=== PATIENT | male | born 1945 | race Caucasian/White ===

== ENCOUNTER 2017-06-15 15:23 | Emergency (ER) | payer MEDICARE ==
[~2017-06-15] VITALS: Ht 170.2 cm; Wt 79.4 kg
--- NOTE | 2017-06-15 16:04 | RAD ---
Chest radiograph 2 view June 15, 2017 Clinical indication: Cough. Hemoptysis. Comparison: None. Findings: Cardiac and mediastinal silhouettes are within normal limits. No pleural effusion, pneumothorax or focal consolidation. Impression: No acute cardiopulmonary abnormality.
[2017-06-15 17:05] LABS: BASO # 0.1 x10^3/uL (0.0-0.2); BASO % 1 % (0-3); EOS % 5 % (0-3); HEMATOCRIT 46.5 % (39.0-53.0); LYMPH # 2.4 x10^3/uL (1.0-4.8); LYMPH % 30 % (24-48); MEAN CORPUSCULAR HEMOGLOBIN 33 pg (25-35); MEAN CORPUSCULAR HGB CONC 35 g/dL (31-37); MEAN CORPUSCULAR VOLUME 95 fL (79-100); MONO % 10 % (0-9); NEUT % 55 % (31-73); PLATELET COUNT 171 x10^3/uL (140-400); RED BLOOD COUNT 4.91 x10^6/uL (4.30-5.70); RED CELL DISTRIBUTION WIDTH 13.3 % (11.5-14.5); WHITE BLOOD COUNT 8.1 x10^3/uL (4.0-11.0)
--- NOTE | 2017-06-15 17:05 | ED.ADGEN ---
Past Medical History Past Medical History: Hypertension, Kidney Stone Past Surgical History: Other Additional Past Surgical Histo: Lithrotripsy Alcohol Use: None Drug Use: None Adult General Chief Complaint Chief Complaint: COUGH HPI HPI Patient is a 71 year old male current smoker with a [id number] tobacco history presents intermittent hemoptysis for the past one year with daily hemoptysis for the past 6 weeks. Patient takes daily aspirin but is not on a two -week radiation therapy. He denies fever, chills, nausea, vomiting, sweats, recent antibiotics or upper respiratory tract infection. Patient has history of hypertension and COPD. He receives his care at the [facility]. He said previous outpatient workup for hemoptysis at the [facility] but is unaware of the results. 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 All other review symptoms are negative. Allergies Allergies Allergies Coded Allergies Type Severity Reaction Last Updated Verified codeine Allergy Intermediate 06/15/17 Yes Physical Exam Physical Exam Constitutional: Well developed, well nourished, no acute distress, non-toxic appearance. [] HENT: Normocephalic, atraumatic, bilateral external ears normal, oropharynx moist, no oral exudates, nose normal. [] Eyes: PERRLA, EOMI, conjunctiva normal, no discharge. [] Neck: Normal range of motion, no tenderness, supple, no stridor. [] Cardiovascular:Heart rate regular rhythm, no murmur [] Lungs & Thorax: Patient's nonlabored mildly diminished breath sounds bilaterally. Abdomen: Bowel sounds normal, soft, no tenderness, no masses, no pulsatile masses. [] Skin: Warm, dry, no erythema, no rash. [] Back: No tenderness, no CVA tenderness. [] Extremities: No tenderness, no cyanosis, no clubbing, ROM intact, no edema. [] Neurologic: Alert and oriented X 3, normal motor function, normal sensory function, no focal deficits noted. [] Psychologic: Affect normal, judgement normal, mood normal. [] Current Patient Data Vital Signs Vital Signs Date Time Temp Pulse Resp B/P (MAP) Pulse Ox O2 Delivery O2 Flow Rate FiO2 06/15/17 16:30 57 20 170/79 (109) 94 Room Air 06/15/17 15:30 98.1 98.1 Lab Values Laboratory Tests Test 06/15/17 16:55 White Blood Count 8.1 x10^3/uL (4.0-11.0) Red Blood Count 4.91 x10^6/uL (4.30-5.70) Hemoglobin 16.0 g/dL (13.0-17.5) Hematocrit 46.5 % (39.0-53.0) Mean Corpuscular Volume 95 fL (79-100) Mean Corpuscular Hemoglobin 33 pg (25-35) Mean Corpuscular Hemoglobin Concent 35 g/dL (31-37) Red Cell Distribution Width 13.3 % (11.5-14.5) Platelet Count 171 x10^3/uL (140-400) Neutrophils (%) (Auto) 55 % (31-73) Lymphocytes (%) (Auto) 30 % (24-48) Monocytes (%) (Auto) 10 % (0-9) H Eosinophils (%) (Auto) 5 % (0-3) H Basophils (%) (Auto) 1 % (0-3) Neutrophils # (Auto) 4.4 x10^3uL (1.8-7.7) Lymphocytes # (Auto) 2.4 x10^3/uL (1.0-4.8) Monocytes # (Auto) 0.8 x10^3/uL (0.0-1.1) Eosinophils # (Auto) 0.4 x10^3/uL (0.0-0.7) Basophils # (Auto) 0.1 x10^3/uL (0.0-0.2) Prothrombin Time 12.1 SEC (11.7-14.0) Prothrombin Time INR 1.0 (0.8-1.1) PTT 39 SEC (24-38) H Sodium Level 141 mmol/L (136-145) Potassium Level 3.8 mmol/L (3.5-5.1) Chloride Level 104 mmol/L (98-107) Carbon Dioxide Level 33 mmol/L (21-32) H Anion Gap 4 (6-14) L Blood Urea Nitrogen 14 mg/dL (8-26) Creatinine 1.1 mg/dL (0.7-1.3) Estimated GFR (Cockcroft-Gault) 66.0 BUN/Creatinine Ratio 13 (6-20) Glucose Level 94 mg/dL (70-99) Calcium Level 10.2 mg/dL (8.5-10.1) H Total Bilirubin 0.2 mg/dL (0.2-1.0) Aspartate Amino Transferase (AST) 15 U/L (15-37) Alanine Aminotransferase (ALT) 19 U/L (16-63) Alkaline Phosphatase 119 U/L (46-116) H Total Protein 7.4 g/dL (6.4-8.2) Albumin 3.7 g/dL (3.4-5.0) Albumin/Globulin Ratio 1.0 (1.0-1.7) Laboratory Tests 06/15/17 16:55 Laboratory Tests 06/15/17 16:55 EKG EKG [] Radiology/Procedures Radiology/Procedures [] Course & Med Decision Making Course & Med Decision Making Pertinent Labs and Imaging studies reviewed. (See chart for details) [] Dragon Disclaimer Dragon Disclaimer This electronic medical record was generated, in whole or in part, using a voice recognition dictation system. SONYA WORKMAN DO Jun 15, 2017 17:05
[2017-06-15 17:15] LABS: PROTHROMBIN TIME PATIENT 12.1 SEC (11.7-14.0)
[2017-06-15 17:18] LABS: CALCIUM 10.2 mg/dL (8.5-10.1); CREATININE 1.1 mg/dL (0.7-1.3); POTASSIUM 3.8 mmol/L (3.5-5.1)
[2017-06-15 17:24] LABS: ALBUMIN 3.7 g/dL (3.4-5.0); TOTAL BILIRUBIN 0.2 mg/dL (0.2-1.0); TOTAL PROTEIN 7.4 g/dL (6.4-8.2)
[2017-06-15] MEDS ORDERED: CONTRAST GIVEN MC PRN (18:30)
[2017-06-15] MEDS ORDERED: IOHEXOL 300 MG/ML 75 ML VIAL IV ONE (18:30)
--- NOTE | 2017-06-15 19:07 | RAD ---
CT CHEST WITH CONTRAST, PULMONARY ANGIOGRAM History: hemoptysis x once daily for 1 year, worse in last 6 wks. soa and cough. Comparison: None. Technique: Helical CT of the chest was performed after the administration of 75 cc of Omni 300 intravenous contrast according to PE protocol. Axial and coronal reconstructions were obtained. 3-D MIP images were constructed to better evaluate the pulmonary arteries. PQRS compliance statement: One or more of the following individualized dose reduction techniques were utilized for this examination: 1. Automated exposure control 2. Adjustment of the mA and/or kV according to patient size 3. Use of iterative reconstruction technique Findings: Pulmonary arteries are adequately opacified. There is no evidence of pulmonary embolism. There is significant atherosclerotic calcification and mural thrombus involving the thoracic aorta, which remains normal in caliber. The aorta is not opacified and therefore not well evaluated. Heart is normal in size without pericardial effusion. A couple left lower paratracheal lymph nodes are present largest measuring 1.6 cm. Small bilateral hilar lymph nodes are seen. Biapical scarring is present. More focal pleural-based, irregular opacity measuring approximately 1.8 cm is present within the medial right upper lobe. An additional irregular pleural-based opacity is present within the superior left lower lobe measuring up to 2.1 cm. A 2 to 3 mm subpleural nodule is present within the lateral right lower lobe. Additional subcentimeter nodularity is present within the subpleural and lateral left lower lobe, about the irregular pleural-based opacity. No pleural effusion or pneumothorax is present. Diffuse emphysematous changes are present bilaterally. Central airways remain patent. Overlying soft tissues and visualized osseous structures demonstrate no acute or suspicious finding. Visualized upper abdomen demonstrates no acute process. IMPRESSION: 1. No CT evidence of pulmonary embolus. 2. Bilateral pleural-based, irregular opacities present within the medial right lung apex and superior left lower lobe. Some adjacent subcentimeter nodularity is present in the lateral left lower lobe. Given the background of emphysematous changes, a malignant etiology is a consideration, with infectious or inflammatory etiologies also possible. Recommend correlation with outpatient PET/CT or at least short-term CT follow-up in 3 months. Electronically signed by: Herminia Sharp MD (06/15/2017 7:03 PM) [facility]
[2017-06-15 20:40] VITALS: BP 156/95
== END 2017-06-15 20:46 | disposition home or self-care (01) ==
LOC: ER 15:23
DX: R04.2 Hemoptysis (principal); J44.9 Chronic obstructive pulmonary disease, unspecified; I10 Essential (primary) hypertension; F17.200 Nicotine dependence, unspecified, uncomplicated; Z87.442 Personal history of urinary calculi; Z79.82 Long term (current) use of aspirin; Z88.5 Allergy status to narcotic agent
CPT/HCPCS: 36415; 71020; 71275; 80053; 85027; 85610; 85730; 99285; Q9967